=== PATIENT | female | born 1955 | race Caucasian/White ===

== ENCOUNTER 2021-06-23 11:20 | Emergency (ER) | payer OTHER ==
[~2021-06-23] VITALS: Ht 165.1 cm; Wt 86.2 kg
[~2021-06-23 11:20] MED LIST: MOBIC7.5 M1 PO; Z.0.SYNTHROID25 MCG PO; Z.0.ZYRTEC10 MG PO
[2021-06-23] MEDS ORDERED: AMLODIPINE BESYLATE 5 MG TAB PO ONE (12:15)
[2021-06-23 12:26] LABS: BASOPHILS # (AUTO) 0.1 (0.0-0.1); BASOPHILS % 0.9 % (0.0-1.0); EOSINOPHILS # (AUTO) 0.2 (0.0-0.4); EOSINOPHILS % 3.8 % (0.0-6.0); HEMATOCRIT 40.4 % (34.2-44.1); HEMOGLOBIN 12.4 g/dL (12.0-16.0); LYMPHOCYTES # (AUTO) 1.1 (1.0-3.2); LYMPHOCYTES % 18.7 % (18.0-39.1); MEAN CORPUSCULAR HEMOGLOBIN 28.4 pg (28-32); MEAN CORPUSCULAR HGB CONC 30.7 g/dL (31-35); MEAN CORPUSCULAR VOLUME 92.7 fL (81-99); MONOCYTES # (AUTO) 0.6 (0.2-0.8); MONOCYTES % 9.5 % (4.4-11.3); NEUTROPHILS # (AUTO) 3.9 (2.1-6.9); NEUTROPHILS % 66.8 % (38.7-80.0); PLATELET COUNT 220 x10e3/uL (140-360); RED BLOOD COUNT 4.36 x10e6/uL (3.6-5.1); RED CELL DISTRIBUTION WIDTH 14.5 % (11.7-14.4)
[2021-06-23 12:37] LABS: CLARITY,URINE CLEAR (CLEAR); COLOR,URINE YELLOW (YELLOW)
[2021-06-23 12:38] LABS: KETONES,URINE NEGATIVE (NEGATIVE); LEUKOCYTE ESTERASE ,URINE NEGATIVE (NEGATIVE); NITRITE,URINE NEGATIVE (NEGATIVE); PROTEIN,URINE DIPSTICK NEGATIVE (NEGATIVE); URINE UROBILINOGEN 0.2 mg/dL (0.2 - 1)
[2021-06-23 12:43] LABS: BACTERIA,URINE FEW /HPF; EPITHELIAL CELLS,URINE FEW /LPF; RBC,URINE 0-5 /HPF (0-5); WBC,URINE (MAN) 0-5 /HPF (0-5)
[2021-06-23 12:47] LABS: ANION GAP 14.2 mmol/L (8-16); CALCIUM 9.4 mg/dL (8.4-10.2); CREATININE, SERUM 0.92 mg/dL (0.57-1.11); POTASSIUM 4.2 mmol/L (3.5-5.1)
[2021-06-23 12:55] LABS: CREATINE KINASE MB 2.6 ng/mL (0-5.0)
[2021-06-23] MEDS ORDERED: AMLODIPINE BESYL5 MG PO (13:26)
== END 2021-06-23 13:30 | disposition home or self-care (01) ==
LOC: ER 11:37
DX: I10 Essential (primary) hypertension (principal); E03.9 Hypothyroidism, unspecified; M48.00 Spinal stenosis, site unspecified; Z91.041 Radiographic dye allergy status; Z91.013 Allergy to seafood; Z79.899 Other long term (current) drug therapy
CPT/HCPCS: 36415; 71045; 80048; 81001; 82550; 82553; 84484; 85025; 93005; 99284